=== PATIENT | female | born 1975 | race Caucasian/White ===

== ENCOUNTER 2020-04-22 16:14 | Emergency (ER) | payer MEDICARE, OTHER ==
[~2020-04-22] VITALS: Ht 160 cm; Wt 61.0 kg
[~2020-04-22 16:14] MED LIST: OMEP20TA5 PO; PROM25TA14 PO; TRAM50TA2 PO
[2020-04-22] MEDS ORDERED: fentaNYL/PF 50MCG/1 ML 2ML syringe IV ONE ×3 (16:40→18:25)
[2020-04-22] MEDS ORDERED: ondansetron/PF 4mg/2ml inj IV ONE (16:40)
[2020-04-22] MEDS ORDERED: normal saline 1000ML IV soln IVB ONE (16:40)
[2020-04-22] MEDS ORDERED: propofol 10mg/ml 20ml vial IV ONE (17:45)
[2020-04-22] MEDS ORDERED: ONDA4TAB12 PO (18:24)
[2020-04-22] MEDS ORDERED: fentaNYL/PF 50MCG/1 ML 2ML syringe ONE (18:24)
[2020-04-22] MEDS ORDERED: HYDR-3965 PO (18:24)
[2020-04-22 19:32] VITALS: BP 111/81
== END 2020-04-22 19:34 | disposition home or self-care (01) ==
LOC: ER 16:14
DX: S73.004A Unspecified dislocation of right hip, initial encounter (principal); M19.90 Unspecified osteoarthritis, unspecified site; M06.9 Rheumatoid arthritis, unspecified; F12.90 Cannabis use, unspecified, uncomplicated; Z98.890 Other specified postprocedural states; Z88.2 Allergy status to sulfonamides; Z88.8 Allergy status to other drugs, medicaments and biological substances; Z79.899 Other long term (current) drug therapy; X50.1XXA Overexertion from prolonged static or awkward postures, initial encounter; Y93.89 Activity, other specified; Y92.89 Other specified places as the place of occurrence of the external cause; Y99.8 Other external cause status
CPT/HCPCS: 27265; 73501; 96374; 96375; 96376; 99152; 99153; 99285; J2405; J2704; J3010; J7030; 27250; 94760

== ENCOUNTER 2021-11-15 13:15 | Observation (INO) | payer MEDICARE, OTHER ==
[~2021-11-15] VITALS: Ht 152.4 cm; Wt 59.0 kg
[2021-11-15] VITALS (14 sets, daily range): BP systolic 101–135; BP diastolic 65–87
[~2021-11-15 13:15] MED LIST changes: +ONDA4TAB12 PO
[2021-11-15] MEDS ORDERED: fentaNYL/PF 50MCG/1 ML 2ML syringe IV ONE ×3 (14:00→16:20)
[2021-11-15] MEDS ORDERED: diphenhydrAMINE 50 mg/ml inj IV ONE (14:00)
[2021-11-15] MEDS ORDERED: ondansetron/PF 4mg/2ml inj IV ONE (14:00)
[2021-11-15] MEDS ORDERED: ketamine 50 mg/ml 10ml vial IV ONE (15:10)
[2021-11-15] MEDS ORDERED: propofol 10mg/ml 20ml vial IV ONE (15:20)
[2021-11-15] MEDS ORDERED: proCHLORperazine 10 MG/2 ml inj IV ONE (15:55)
[2021-11-15] MEDS ORDERED: LORazepam 2 mg/ml vial IV ONE (15:55)
--- NOTE | 2021-11-15 16:19 | NUR ---
POST PROCEDURE X RAY. PROCEDURE UNSUCCESSFUL. MD TO PLACE ORDERS AND REASSESS.
[2021-11-15 17:02] LABS: BASOPHILS % (AUTO) 0.5 % (0-1); EOSINOPHILS % (AUTO) 0 % (0-6); HEMOGLOBIN 11.8 g/dl (12.0-16.0); LYMPHOCYTES # (AUTO) 0.6 X10'3 (1.1-4.8); LYMPHOCYTES % (AUTO) 7.2 % (21-51); MEAN CORPUSCULAR HEMOGLOBIN 28.3 PG (27.0-31.0); MEAN CORPUSCULAR HGB CONC 33.6 g/dL (33.0-36.5); MEAN CORPUSCULAR VOLUME 84.2 FL (78-98); MEAN PLATELET VOLUME 7.5 FL (7.4-10.4); MONOCYTES # (AUTO) 0.4 X10'3 (0-0.9); MONOCYTES % (AUTO) 4.4 % (2-12); NEUTROPHILS # (AUTO) 7.8 X10'3 (1.8-7.7); NEUTROPHILS % (AUTO) 87.9 % (42-75); PLATELET COUNT 341 X10'3 (140-440); RED BLOOD COUNT 4.16 X10'6 (4.20-5.60); RED CELL DISTRIBUTION WIDTH 13.3 % (11.5-14.5); WHITE BLOOD COUNT 8.9 X10'3 (4.5-11.0)
[2021-11-15] MEDS ORDERED: GABA300C PO (17:10)
[2021-11-15] MEDS ORDERED: LORA-269 PO (17:10)
[2021-11-15] MEDS ORDERED: IBUP-860 PO (17:14)
[2021-11-15] MEDS ORDERED: magnesium 2GM in 50ml NS 50 ML IV PRN (17:15)
[2021-11-15] MEDS ORDERED: acetaminophen 650mg rectal suppository RC PRN (17:15)
[2021-11-15] MEDS ORDERED: mag hydrox/Alum hydrox/simeth 30ml oral suspension PO PRN (17:15)
[2021-11-15] MEDS ORDERED: magnesium 4gm in 100ml NS 100 ML IV PRN (17:15)
[2021-11-15] MEDS ORDERED: acetaminophen 325mg tablet PO PRN ×2 (17:15)
[2021-11-15] MEDS ORDERED: ondansetron 4mg rapidly disintigrating tab PO PRN (17:15)
[2021-11-15] MEDS ORDERED: potassium Cl 20 mEq SR tablet PO PRN ×2 (17:15)
[2021-11-15] MEDS ORDERED: potassium CL 10mEq/100ml bag 100 ML IV PRN (17:15)
[2021-11-15] MEDS ORDERED: ondansetron/PF 4mg/2ml inj IV PRN ×2 (17:15→19:20)
[2021-11-15] MEDS ORDERED: magnesium hydroxide 30ml (MOM) UD suspension PO PRN (17:15)
[2021-11-15] MEDS ORDERED: HYDROcodone/acetaminophen 10/325mg tab PO PRN (17:15)
[2021-11-15] MEDS ORDERED: HYDROcodone/acetaminophen 5mg/325mg tablet PO PRN (17:15)
[2021-11-15] MEDS ORDERED: HYDROmorphone/PF 0.2 MG/ML SYRINGE IV PRN (17:15)
[2021-11-15] MEDS ORDERED: magnesium Cl slow-release 64mg tablet PO PRN (17:15)
[2021-11-15] MEDS ORDERED: HYDROmorphone inj. 0.5 MG/0.5 ML DISP.SYRIN IV PRN (17:15)
[2021-11-15] MEDS ORDERED: metoclopramide 5 mg/ml inj IV PRN (17:15)
[2021-11-15 17:21] LABS: ALANINE AMINOTRANSFERASE 14 U/L (12-78); ALBUMIN 3.9 G/DL (3.4-5.0); ALBUMIN/GLOBULIN RATIO 1.3 (1.1-1.5); ALKALINE PHOSPHATASE 48 IU/L (46-116); ANION GAP 16 (8-16); ASPARTATE AMINO TRANSFERASE 13 U/L (10-37); BILIRUBIN,TOTAL 0.4 MG/DL (0.1-1.0); BLOOD UREA NITROGEN 7 MG/DL (7-18); BUN/CREATININE RATIO 11.9 (6.6-38.0); CALCIUM 8.6 MG/DL (8.5-10.1); CHLORIDE 103 MMOL/L (99-107); CREATININE 0.59 MG/DL (0.40-0.90); GLUCOSE 115 MG/DL (70-104); POTASSIUM 3.4 MMOL/L (3.5-5.1); SODIUM 137 MMOL/L (135-145); TOTAL PROTEIN 6.9 G/DL (6.4-8.2); eGFR > 90 ML/MIN
[2021-11-15] MEDS ORDERED: mineral oil/petrolatum ophthal oint LEFTEYE PRN (17:25)
[2021-11-15] MEDS ORDERED: NALT50TA PO (17:25)
[2021-11-15 17:44] LABS: MAGNESIUM 1.7 MG/DL (1.5-2.4)
[2021-11-15] MEDS ORDERED: midazolam 1 mg/ML 2ml injection ONE (17:50)
[2021-11-15] MEDS ORDERED: fentaNYL/PF 50MCG/1 ML 2ML syringe ONE ×2 (17:50→18:52)
[2021-11-15] MEDS ORDERED: LORazepam 1 MG tablet PO PRN (17:55)
[2021-11-15] MEDS ORDERED: sevoflurane 250ml liquid IH ONE (18:22)
[2021-11-15] MEDS ORDERED: scopolamine 1.5mg patch.TD72 (72-hour patch) TD ONE (18:25)
[2021-11-15] MEDS ORDERED: scopolamine 1mg/72 hr patch TD ONE ×2 (18:30→18:35)
[2021-11-15] MEDS ORDERED: sugammadex 200mg/2ml injection IV ONE (18:44)
--- NOTE | 2021-11-15 18:52 | NUR ---
RECOVERED PT IN OR ROOM 1. PT WITH HIP ABDUCTOR WEDGE IN PLACE, 18G TO RIGHT AC RUNNING LR. NO DRESSING. REPORT FROM DR HYMAN. Addendum: 11/15/21 at 2030 by Pricila Meyers RN Amended: Links added.
[2021-11-15] MEDS ORDERED: propofol inj 20 ML IV ONE (18:59)
[2021-11-15] MEDS ORDERED: ondansetron/PF 4mg/2ml inj ONE (18:59)
[2021-11-15] MEDS ORDERED: rocuronium 10mg/ml inj IV ONE (18:59)
[2021-11-15] MEDS ORDERED: LIDOcaine 2% (20mg/ml) 5ml vial ONE (18:59)
[2021-11-15] MEDS ORDERED: dexamethasone sod phosphate 4mg/ml inj. ONE (18:59)
[2021-11-15] MEDS ORDERED: ringers solution, lacted 1,000 ML IV SCH (19:20)
[2021-11-15] MEDS ORDERED: fentaNYL/PF 50MCG/1 ML 2ML syringe IV PRN ×2 (19:20)
--- NOTE | 2021-11-15 19:42 | NUR ---
PT TRANSFERRED TO ROOM [facility] VIA [facility] FROM OR ROOM 1. EKATERINA SARABIA CRITERIA MET, ALL QUESTIONS ASKED AND ANSWERED TO PRIMARY RN DECEMBER. RN AT TO ASSIST MOVING PT FROM [facility] TO BED. PT CARE TRANSFERRED TO DECEMBER RN Addendum: 11/15/21 at 2046 by Pricila Meyers RN Amended: Links added.
[2021-11-15] MEDS: normal saline 1000ml 1,000 ML IV SCH (19:55)
[2021-11-15] MEDS: K and/or MAG REPLACEMENT MC SCH (20:00)
[2021-11-15] MEDS ORDERED: gabapentin 300mg capsule PO SCH (21:00)
[2021-11-15] MEDS ORDERED: temazepam 15mg capsule PO PRN (21:00)
[2021-11-15] MEDS: docusate sod 100mg capsule PO SCH (23:40)
[2021-11-16 02:00] VITALS: BP 117/65
[2021-11-16] MEDS: normal saline 1000ml 1,000 ML IV SCH ×2 (03:15→05:50)
[2021-11-16] MEDS ORDERED: ibuprofen tablet 400 MG TABLET PO ONE (05:30)
[2021-11-16 06:00] VITALS: BP 98/66
--- NOTE | 2021-11-16 06:36 | NUR ---
Patient in room ORTHO 4013. I have received report from Rosalind RN and had the opportunity to ask questions and assume patient care.
[2021-11-16] MEDS ORDERED: naltrexone 50mg tablet PO SCH (08:00)
[2021-11-16] MEDS: K and/or MAG REPLACEMENT MC SCH (08:00)
[2021-11-16] MEDS: docusate sod 100mg capsule PO SCH (08:26)
[2021-11-16 08:39] LABS: BASOPHILS % (AUTO) 0.3 % (0-1); EOSINOPHILS % (AUTO) 0 % (0-6); HEMATOCRIT 35.8 % (35.0-45.0); HEMOGLOBIN 11.8 g/dl (12.0-16.0); LYMPHOCYTES # (AUTO) 0.8 X10'3 (1.1-4.8); LYMPHOCYTES % (AUTO) 12.9 % (21-51); MEAN CORPUSCULAR HEMOGLOBIN 28.1 PG (27.0-31.0); MEAN CORPUSCULAR HGB CONC 32.8 g/dL (33.0-36.5); MEAN CORPUSCULAR VOLUME 85.5 FL (78-98); MEAN PLATELET VOLUME 7.9 FL (7.4-10.4); MONOCYTES # (AUTO) 0.4 X10'3 (0-0.9); MONOCYTES % (AUTO) 6.8 % (2-12); NEUTROPHILS # (AUTO) 5.2 X10'3 (1.8-7.7); PLATELET COUNT 310 X10'3 (140-440); RED BLOOD COUNT 4.19 X10'6 (4.20-5.60); RED CELL DISTRIBUTION WIDTH 13.7 % (11.5-14.5); WHITE BLOOD COUNT 6.4 X10'3 (4.5-11.0)
[2021-11-16 09:23] LABS: ALANINE AMINOTRANSFERASE 13 U/L (12-78); ALBUMIN 3.7 G/DL (3.4-5.0); ALBUMIN/GLOBULIN RATIO 1.3 (1.1-1.5); ALKALINE PHOSPHATASE 44 IU/L (46-116); ANION GAP 11 (8-16); ASPARTATE AMINO TRANSFERASE 9 U/L (10-37); BILIRUBIN,TOTAL 0.4 MG/DL (0.1-1.0); BLOOD UREA NITROGEN 4 MG/DL (7-18); BUN/CREATININE RATIO 7.7 (6.6-38.0); CALCIUM 8.8 MG/DL (8.5-10.1); CHLORIDE 106 MMOL/L (99-107); CREATININE 0.52 MG/DL (0.40-0.90); GLUCOSE 123 MG/DL (70-104); MAGNESIUM 1.9 MG/DL (1.5-2.4); SODIUM 140 MMOL/L (135-145); TOTAL CARBON DIOXIDE 22.7 MMOL/L (24-32); TOTAL PROTEIN 6.6 G/DL (6.4-8.2); eGFR > 90 ML/MIN
[2021-11-16 10:00] VITALS: BP 107/75
[2021-11-16] MEDS ORDERED: ibuprofen 200mg tablet PO PRN (10:50)
[2021-11-16] MEDS ORDERED: APIX5TAB3 PO (11:04)
--- NOTE | 2021-11-16 12:56 | NUR ---
Explained all discharge and medication instructions to pt. Pt verbalized understanding. Piv d/c'd, tip intact. Pt escorted via wheelchair to private vehicle.
[2021-11-16] MEDS ORDERED: enoxaparin 40mg/0.4ml syringe SUBCUT SCH (20:00)
== END 2021-11-16 12:50 | disposition home health service (06) ==
LOC: ER 13:16 → INTOOBSV 17:24 → ED HOLD 17:24 → ORTHO 4S 20:00
PROVIDERS: ADMIT Family Medicine; ATTEND Family Medicine
DX: U07.1 COVID-19 (principal); T84.020A Dislocation of internal right hip prosthesis, initial encounter; M06.9 Rheumatoid arthritis, unspecified; F41.9 Anxiety disorder, unspecified; F11.21 Opioid dependence, in remission; Z79.899 Other long term (current) drug therapy; Z79.01 Long term (current) use of anticoagulants; X50.1XXA Overexertion from prolonged static or awkward postures, initial encounter; Y93.89 Activity, other specified; Y92.89 Other specified places as the place of occurrence of the external cause; Y79.2 Prosthetic and other implants, materials and accessory orthopedic devices associated with adverse incidents
CPT/HCPCS: 27256; 27265; 27266; 36415; 72170; 73501; 80053; 83735; 85025; 85610; 86885; 86900; 86901; 87081; 87635; 94760; 94799; 96374; 96375; 96376; 99284; C9803; G0378; J1100; J1200; J2250; J2405; J2704; J3010; J3490; J7030; 99285; A4618